=== PATIENT | female | born 1995 | race Caucasian/White ===

== ENCOUNTER 2023-06-23 17:49 | Inpatient (IN) ==
[2023-06-23] MEDS ORDERED: LIDOCAINE 1% LOCAL 20 ML VIAL INFIL PRN (18:23)
[2023-06-23] MEDS ORDERED: OXYTOCIN 30 UNITS/NSS 30 UNITS/500 ML BAG IV PRN (18:23)
[2023-06-23 18:50] LABS: Hemoglobin 13.3 g/dl (12.0-16.0); Mean Corpuscular Hemoglobin 30.4 pg (25.0-34.0); Mean Corpuscular Hgb Conc 33.3 g/dL (32.0-36.0); Mean Corpuscular Volume 91.5 fL (80.0-100.0); Mean Platelet Volume 9.9 fL (9.4-12.4); Platelet Count 233 K/uL (130-400); RDW Coefficient of Variation 12.9 % (11.5-14.5); RDW Standard Deviation 43.2 fL (36.4-46.3); Red Blood Count 4.37 M/uL (4.20-5.40); White Blood Count 15.69 K/ul (4.8-10.8)
[2023-06-23] MEDS: LACTATED RINGER'S 1,000 ML IV PRN (18:53)
--- NOTE | 2023-06-23 19:06 | Labor Progress Brief Note ---
Date of Service June 23, 2023 Subjective 27yo at 39w3d with SROM and Labor. GBS neg. GDM diet-controlled. Assessment & Plan (1) Gestational diabetes mellitus (GDM) affecting , antepartum: Plan: Labor. Epidural on request Augment prn, contraction pattern suboptimal Admission and Anticipated Discharge Date Admission Date: June 23, 2023 Physical Exam Genitourinary: /-1 ROM clear FHT Cat 1 Hi-Nella Q5 Results & Data Vital Signs (Past 12 Hours) Vital Signs Temp Pulse Resp BP 06/23/23 18:14 91 H 132/82 06/23/23 18:07 98.2 F 18 06/23/23 18:03 98 H 139/87 Coding Level of Care Code None Diagnoses Gestational diabetes mellitus (GDM) affecting , antepartum O24.419
[2023-06-23] MEDS ORDERED: SODIUM CHLORIDE 0.9% PF INJ 10 ML VIAL EPI PRN (19:51)
[2023-06-23] MEDS ORDERED: diphenhydrAMINE 50 MG/ML VIAL IV PRN (19:51)
[2023-06-23] MEDS ORDERED: BUPIVACAINE 0.25% PF 30 ML VIAL EPI STA (19:51)
[2023-06-23] MEDS ORDERED: ONDANSETRON INJ 2 MG/ML 2 ML VIAL IV PRN (19:51)
[2023-06-23] MEDS ORDERED: fentaNYL citrate PF 100 MCG/2 ML VIAL EPI STA (19:51)
[2023-06-23] MEDS ORDERED: ROPIVACAINE 0.5% PF 5 MG/ML 20 ML VIAL EPI PRN (19:51)
[2023-06-23] MEDS ORDERED: fentaNYL citrate PF 100 MCG/2 ML VIAL EPI PRN (19:51)
[2023-06-23] MEDS ORDERED: BUPIVACAINE 0.25% PF 30 ML VIAL EPI PRN (19:51)
[2023-06-23] MEDS ORDERED: ePHEDrine sulfate 50 MG/ML AMP IV PRN (19:51)
[2023-06-23] MEDS ORDERED: fentANYL 2 MCG/ML BUPIVacaine 0.125%-NSS 100ML BAG EPI PRN (19:51)
[2023-06-23] MEDS ORDERED: NALOXONE HCL 0.4 MG/1 ML VIAL/CARP IV PRN (19:51)
[2023-06-23] MEDS ORDERED: LIDOCAINE 2%/EPINEPHRINE 1:200,000 20 ML PF EPI STA (19:51)
[2023-06-23] MEDS ORDERED: NALOXONE HCL 1 MG in SODIUM CHLORIDE 0.9% 1,000 ML IV PRN (19:51)
[2023-06-23] MEDS ORDERED: NALBUPHINE HCL 5 MG in SYRINGE 0 ML IV PRN (19:51)
[2023-06-23] MEDS ORDERED: SODIUM CHLORIDE 0.9% PF INJ 10 ML VIAL EPI STA (19:51)
[2023-06-23] MEDS ORDERED: LIDOCAINE 2% MPF LOCAL 5 ML VIAL EPI PRN (19:51)
--- NOTE | 2023-06-23 19:52 | Anesthesiology Consultation ---
Date of Service June 23, 2023 Assessment & Plan (1) Encounter for pre-operative examination: Chart Review Chart Review: Patient NOT seen in Pre Admission Testing and Acceptable Risk for Labor Epidural Consults Requested none History Height/Weight Height: 5 ft 6 in Weight: 92.533 kg Allergies Allergy/AdvReac Type Severity Reaction Status Date / Time No Known Allergies Allergy Verified 06/23/23 18:06 Medications Home Medications Medication Instructions Recorded Confirmed Last Taken acetone (urine) test (Ketone Urine #50 ea 04/13/23 06/21/23 Unknown Test strips) blood sugar diagnostic (OneTouch #150 ea 04/13/23 06/21/23 Unknown Verio test strips) blood-glucose meter (OneTouch #1 ea 04/13/23 06/21/23 Unknown Verio Reflect Meter) lancets 33 gauge (OneTouch Delica #150 ea 04/13/23 06/21/23 Unknown Plus Lancet) vits no.124-ferrous fum 1 tab PO DAILY 06/23/23 06/23/23 06/23/23 27 mg iron-folic acid 800 mcg tablet ( Vitamin) Active Medications Generic Name Dose Route Start Last Admin Trade Name Freq PRN Reason Stop Dose Admin Lactated Ringer's 1,000 mls @ 125 mls/hr 06/23/23 18:23 06/23/23 19:25 Lr IV 06/25/23 18:22 125 mls/hr .Q8H PRN Infusion L&D Protocol Protocol Past Medical History Medical History (Updated 06/23/23 @ 19:52 by Fidel Landon MD) Encounter for pre-operative examination Varicella vaccination Exercise / Class Metabolic Activity II 4-5 Yardwork/Stairs/Walk up hill Past Family History Family History Grandfather (Paternal) Colorectal cancer colon cancer around 89 years old Denies family history of Ovarian cancer Prostate cancer Myocardial infarction Breast cancer Past Surgical History Surgical History Status post surgery thumb surgery H/O wisdom tooth extraction Social History Smoking Status: Never smoker Do You Dip or Chew Tobacco: No Hx Alcohol Use: No Hx Substance Use: No substance use type: does not use Physical Exam Vital Signs Last Vital Signs Temp 36.8 C 06/23/23 18:07 Pulse 90 06/23/23 20:14 Resp 18 06/23/23 18:07 BP 124/71 06/23/23 20:12 Pulse Ox 100 06/23/23 20:14 Testing Laboratory Results 06/23/23 18:36
[2023-06-23] MEDS: LIDOCAINE 2%/EPINEPHRINE 1:200,000 20 ML PF ONE (20:15)
[2023-06-23] MEDS: fentANYL 2 MCG/ML BUPIVacaine 0.125%-NSS 100ML BAG ONE (20:16)
[2023-06-23] MEDS: fentaNYL citrate PF 100 MCG/2 ML VIAL ONE (20:16)
[2023-06-23] MEDS: BUPIVACAINE 0.25% PF 30 ML VIAL ONE (20:16)
[2023-06-23] MEDS: SODIUM CHLORIDE 0.9% PF INJ 10 ML VIAL ONE (20:36)
[2023-06-23] MEDS: ePHEDrine sulfate 50 MG/ML AMP ONE (23:39)
[2023-06-23] MEDS: OXYTOCIN 30 UNITS/NSS 30 UNITS/500 ML BAG IV PRN (23:47)
--- NOTE | 2023-06-24 01:36 | Delivery Summary ---
Vaginal Delivery Summary Date of Service June 24, 2023 Vaginal Delivery Summary DIAGNOSES: 1. Pineda intrauterine at 39w4d gestation. 2. Spontaneous onset of labor. 3. Group B Streptococcus Neg. PROCEDURE: Spontaneous vaginal delivery and repair of 1st degree posterior vaginal laceration. SURGEON: Shira Nolasco MD. PATIENT FINANCIAL COORDINATOR: None. ESTIMATED BLOOD LOSS: 250 mL. COMPLICATIONS: None. PLACENTA: Spontaneous and intact with a 3-vessel cord. DISPOSITION: Stable to labor and delivery. DESCRIPTION: The patient pushed well and brought the head to in DOA position. The infant's head was allowed to deliver with contraction force and no further active pushing, with the perineum protected during this time. There was no nuchal cord. The left shoulder was anterior, and the R hand was compound presenting alongside the face, with R elbow in full flexion. The shoulders and body delivered without any difficulty, and the was placed on the maternal abdomen. It was vigorous and moving all extremities, and making respiratory efforts. The cord was doubly clamped by the MD and then cut by the FOB. The placenta delivered spontaneously and was noted to be intact and with a 3VC. The cervix, vagina and perineum were examined and were found to have only a shallow posterior vaginal laceration but it was not fully hemostatic, thus a 3-0 vicryl was used to close this area. The perineal skin was not disrupted. The fundus was firm and lochia minimal immediately after delivery. [facility] [place] Vaginal Delivery Charge Vaginal Delivery Codes: 56504 global code for the antepartum, delivery, and post-
[2023-06-24] MEDS ORDERED: HYDROCORTISONE ACETATE 25 MG SUPP PR PRN (03:08)
[2023-06-24] MEDS ORDERED: OXYTOCIN 30 UNITS/NSS 30 UNITS/500 ML BAG IV PRN (03:08)
[2023-06-24] MEDS ORDERED: oxyCODONE/ACETAMINOPHEN 5mg/325mg TAB PO PRN (03:08)
[2023-06-24] MEDS: BENZOCAINE 20% SPRY 85 APPLN/85 GM CAN EXT PRN (05:16)
[2023-06-24] MEDS: ACETAMINOPHEN 325 MG TAB PO PRN (05:17)
[2023-06-24] MEDS: DIPHTHER/TETAN/PERTUS Vaccine (Tdap, Adol/Adult) 0.5mL IM ONE (05:19)
[2023-06-24] MEDS: DOCUSATE SODIUM 100 MG CAP PO SCH (08:23)
[2023-06-24] MEDS: PRENATAL VITAMIN 1 TAB PO SCH (08:23)
[2023-06-24] MEDS: IBUPROFEN 600 MG TAB PO PRN (08:31)
--- NOTE | 2023-06-25 04:43 | Obstetrical Progress Note ---
Date of Service June 25, 2023 Assessment & Plan (1) Encounter for assessment: Plan 27 y/o PPD#1 Eating well, voiding well, ambulating well Vitals reviewed, WNL Pain well controlled with Tylenol and Motrin Routine post care - OOB, ambulation, diet progression as tolerated Will have 6 week follow up with Dr. Nolasco Subjective Ambulation: ambulating normally Voiding: no voiding problems Passing Gas:: Yes Diet Tolerance:: regular diet Lochia:: Small Feeding Type:: breast feeding pain well controlled with Tylenol and Motrin Review of Systems -Denies fever or chills -Denies dyspnea, chest pain, or palpitations -Denies breast pain -Denies dysuria -Denies headache or changes in vision Physical Exam General: Alert and oriented. No acute distress Cardiac: Regular rate and rhythm, no murmurs appreciated Respiratory: Lungs clear to auscultation bilaterally, No increased work of breathing Abdominal: Soft, non-tender, non-distended. Bowel sounds present. Uterus: Uterine fundus firm, palpable below umbilicus Extremities: No lower extremity edema, calves non-tender bilaterally Results & Data Vital Signs (Past 12 Hours) Vital Signs Temp Pulse Resp BP Pulse Ox O2 Del Method 06/25/23 03:45 36.8 C 84 20 123/82 99 Room Air 06/24/23 23:40 36.9 C 89 20 111/70 97 Room Air 06/24/23 19:30 36.6 C 93 H 18 113/70 98 Room Air
[2023-06-25 07:11] LABS: Hematocrit (blood only) 35.1 % (37.0-47.0); Hemoglobin 11.8 g/dl (12.0-16.0); Mean Corpuscular Hemoglobin 30.8 pg (25.0-34.0); Mean Corpuscular Hgb Conc 33.6 g/dL (32.0-36.0); Mean Corpuscular Volume 91.6 fL (80.0-100.0); Mean Platelet Volume 9.7 fL (9.4-12.4); Platelet Count 198 K/uL (130-400); RDW Coefficient of Variation 13.2 % (11.5-14.5); RDW Standard Deviation 44.5 fL (36.4-46.3); Red Blood Count 3.83 M/uL (4.20-5.40); White Blood Count 14.02 K/ul (4.8-10.8)
[2023-06-25] MEDS ORDERED: bisacodyL 5 MG TABEC PO SCH (20:00)
[2023-06-26] MEDS ORDERED: bisacodyL 10 MG SUPP PR PRN (03:08)
== END 2023-06-25 14:50 | disposition home or self-care (01) | DRG 807 ==
LOC: OPB 17:49 → 4S1 17:50 → 4E2 06-24 05:19